=== PATIENT | female | born 1985 | race Caucasian/White ===

== ENCOUNTER → 2017-07-02 | Outpatient (REF) | payer OTHER ==
[~2017-07-02] MED LIST: ANXIETY MED; HYDR473S9; NAUSEA MED; NORG1TAB74 PO; PANT20TA27 PO; PROM-110 PO
[2017-07-02 12:06] LABS: PLATELET COUNT, AUTOMATED 224 K/uL (150-450)
== END ==
LOC: ZZSTITCHES 11:45
PROVIDERS: ATTEND Physician Assistant
DX: R10.13 Epigastric pain (principal); R19.7 Diarrhea, unspecified; R11.2 Nausea with vomiting, unspecified
CPT/HCPCS: 85025

== ENCOUNTER → 2017-07-05 | Outpatient (CLI) | payer OTHER ==
--- NOTE | 2017-07-05 14:08 | RADIOLOGY IMAGING REPORT ---
[place]AC[place] [facility] [place]IENT NAME: Angie Tracy : 1985 MR: [id number] V: [id number] EXAM DATE: ORDERING PHYSICIAN: LE TSANG TECHNOLOGIST: Location: [facility] [place] Patient: Angie Tracy : 1985 Visit/Account:[id number] Date of Sevice: 07/05/2017 GALLBLADDER HISTORY: Right upper quadrant pain and epigastric pain for couple of months on and off COMPARISON: October 20, 2014 FINDINGS: Gallbladder: Unremarkable; no stones or sludge. Liver: Negative. Common duct: Normal, 2.8 mm diameter. Pancreas: Partially obscured by bowel, visualized aspects unremarkable. Right kidney: Right kidney appears unremarkable measuring 9.5 cm in length Upper abdominal aorta and IVC: Patent. Ascites: None visualized. IMPRESSION: Unremarkable right upper quadrant ultrasound Report Dictated By: Lynn Garcia MD at 07/05/2017 1:58 PM Report E-Signed By: Lynn Garcia MD at 07/05/2017 2:03 PM WSN:[email or web address]
== END ==
LOC: US 01:12
PROVIDERS: ATTEND Physician Assistant
DX: R10.13 Epigastric pain (principal); R19.7 Diarrhea, unspecified; R11.2 Nausea with vomiting, unspecified
CPT/HCPCS: 76705

== ENCOUNTER → 2017-08-26 | Outpatient (CLI) | payer OTHER ==
[~2017-08-26] MED LIST changes: +PREN-127 PO
[2017-08-26 15:52] LABS: PLATELET COUNT, AUTOMATED 214 K/uL (150-450)
== END ==
LOC: LAB 15:21
PROVIDERS: ATTEND Obstetrics & Gynecology
DX: Z34.01 Encounter for supervision of normal first pregnancy, first trimester (principal); R82.79 Other abnormal findings on microbiological examination of urine
CPT/HCPCS: 36415; 85025; 86592; 86762; 86850; 86900; 86901; 87088; 87340

== ENCOUNTER → 2017-12-02 | Outpatient (CLI) | payer OTHER ==
[~2017-12-02] MED LIST changes: +ONDA4TAB PO
--- NOTE | 2017-12-02 14:17 | RADIOLOGY IMAGING REPORT ---
FACILITY: [facility] - [place] PATIENT NAME: Angie Tracy : 1985 MR: [id number] V: [id number] EXAM DATE: ORDERING PHYSICIAN: KETURAH FARIAS TECHNOLOGIST: Location: [facility] Patient: Angie Tracy : 1985 Visit/Account:[id number] Date of Sevice: 12/02/2017 [facility] OB ANATOMICAL SURVEY HISTORY: Anatomic survey COMPARISON: None. TECHNIQUE: Transabdominal imaging was performed for assessment of the fetus and maternal pelvic s tructures. Transvaginal imaging was not performed. FINDINGS: Intrauterine gestations: One. presentation: Breech with the head towards the maternal right. heart rate: 150 bpm. Amniotic fluid volume: Normal; JOY 17.2 cm; MVP 5 cm. Placenta: Anterior. Uterus: Gravid, otherwise grossly unremarkable where visualized. Maternal adnexa/ovaries: Grossly unremarkable, ovaries not visualized. Cervix: Grossly long and closed. Gestational Parameters: BPD: 4.97 cm, 44th percentile HC: 18.95 cm, 44th percentile AC: 15.86 cm, 38th percentile FL: 3.55 cm, 43rd percentile Average ultrasound age (AUA): 21 weeks/ two days Estimated age based on LMP: 21 weeks/ one days Estimated weight (EFW): 400 grams +/- 59 grams Anatomic Survey: Intracranial structures, 4-chamber heart, stomach, kidneys, urinary bladder, spine, 3-vessel cord and cord insertion are unremarkable. Two upper and two lower extremities visualized. IMPRESSION: Single viable fetus in breech presentation with an estimated gestational age by measurements of 21 we eks and two days. Estimated weight is 400 g. Report Dictated By: Lynn Garcia MD at 12/02/2017 2:10 PM Report E-Signed By: Lynn Garcia MD at 12/02/2017 2:13 PM WSN:[email or web address]
== END ==
LOC: RAD 09:23
PROVIDERS: ATTEND Obstetrics & Gynecology
DX: Z02.9 Encounter for administrative examinations, unspecified (principal)